=== PATIENT | male | born 1980 | race Caucasian/White ===

== ENCOUNTER 2017-11-23 13:29 | Emergency (ER) | payer OTHER ==
[~2017-11-23] VITALS: Ht 162.6 cm; Wt 62.6 kg
[2017-11-23] MEDS ORDERED: Prednisone20 MG PO (14:16)
== END 2017-11-23 14:21 | disposition home or self-care (01) ==
LOC: ER 13:29
DX: L23.7 Allergic contact dermatitis due to plants, except food (principal); Z88.1 Allergy status to other antibiotic agents
CPT/HCPCS: 99282